=== PATIENT | male | born 1940 | race Caucasian/White ===

== ENCOUNTER → 2024-04-26 | Outpatient (CLI) | payer MEDICARE ==
[~2024-04-26] MED LIST: ASPI-COR81 M1; KEFLEX500 MG PO
[2024-04-26 10:46] LABS: BASO # 0.1 10*3/uL (0.0-0.1); BASO % 0.8 % (0.0-1.0); EOS # 0.3 10*3/uL (0.0-0.4); EOS % 3.3 % (1.0-4.0); HEMATOCRIT 52.2 % (42.0-52.0); LYMPH # 1.8 10*3/uL (1.3-4.4); LYMPH % 24.3 % (27.0-41.0); MEAN CELL VOLUME 88.8 fl (80.0-94.0); MEAN CORPUSCULAR HGB CONC 34.9 g/dl (33.0-37.0); MEAN PLATELET VOLUME 9.6 fl (9.6-12.3); MONO # 0.5 10*3/uL (0.1-1.0); MONO % 6.9 % (3.0-9.0); NEUT # 4.8 10*3/uL (2.3-7.9); NEUT % 64.2 % (47.0-73.0); PLATELET COUNT AUTOMATED 171 10*3/uL (130-400); RED BLOOD COUNT 5.88 10*6/uL (4.50-5.90); RED CELL DISTRI WIDTH 14.1 % (0-14.5); RETICULOCYTE % 1.72 % (0.50-2.50); WHITE BLOOD COUNT 7.5 10*3/uL (4.8-10.8)
[2024-04-26 10:49] LABS: BILIRUBIN Negative (Negative); BLOOD Negative (Negative); CLARITY Clear (Clear); COLOR Yellow (Yellow); GLUCOSE Negative (Negative); KETONE Negative (Negative); LEUKO ESTERASE Negative (Negative); NITRITE Negative (Negative); PH 5.5 (4.5-8.0); UROBILINOGEN 0.2 E.U./dl (0.0-1.0)
[2024-04-26 11:02] LABS: EPITHELIAL CELLS 0-2
[2024-04-26 11:12] LABS: ALKALINE PHOSPHATASE 49 U/L (46-116); BUN 19 mg/dl (9-23); CHLORIDE 107 mmol/L (98-107); CHOLESTEROL 135 mg/dL (<200); GAMMA GLUTAMYL TRANSPEPTIDASE 16 U/L (0-73); LDL CHOLESTEROL 68 mg/dL (9-159); POTASSIUM 4.3 mmol/L (3.4-5.1); SGPT/ALT 19 U/L (5-49); T3 UPTAKE 32.3 % (22.4-36.7); TOTAL PROTEIN 6.9 gm/dL (6.0-8.0); TRIGLYCERIDES 143 mg/dl (<150); URIC ACID 6.5 mg/dL (3.7-9.2)
[2024-04-26 11:24] LABS: VITAMIN D, 25-HYDROXY 92.1 ng/mL (30-100)
[2024-04-29 14:07] LABS: ANTI-DSDNA ANTIBODIES <1 IU/mL (0-9)
== END | disposition home or self-care (01) ==
LOC: LAB 10:16
PROVIDERS: ATTEND Family Medicine
DX: Z12.5 Encounter for screening for malignant neoplasm of prostate (principal); R06.02 Shortness of breath; R79.89 Other specified abnormal findings of blood chemistry; R53.83 Other fatigue; E78.5 Hyperlipidemia, unspecified; R74.8 Abnormal levels of other serum enzymes; E55.9 Vitamin D deficiency, unspecified

== ENCOUNTER → 2024-05-16 | Outpatient (CLI) | payer MEDICARE ==
[~2024-05-16] MED LIST changes: +GADOTERATE MEGLUMINE 7.5 MMOL/15 ML VIAL IV ONE
== END | disposition home or self-care (01) ==
LOC: US 01:02 → MRI 10:00
PROVIDERS: ATTEND Family Medicine
DX: I65.23 Occlusion and stenosis of bilateral carotid arteries (principal); R90.82 White matter disease, unspecified; R42 Dizziness and giddiness; R51.9 Headache, unspecified

== ENCOUNTER → 2025-06-27 | Outpatient (CLI) | payer MEDICARE ==
[~2025-06-27] MED LIST changes: -GADOTERATE MEGLUMINE 7.5 MMOL/15 ML VIAL IV ONE
[2025-06-27 11:29] LABS: BASO # 0.1 10*3/uL (0.0-0.1); BASO % 1.0 % (0.0-1.0); EOS # 0.3 10*3/uL (0.0-0.4); EOS % 3.3 % (1.0-4.0); MEAN CELL VOLUME 88.7 fl (80.0-94.0); MEAN CORPUSCULAR HGB 29.8 pg (27.0-31.0); MEAN PLATELET VOLUME 9.8 fl (9.6-12.3); MONO # 0.6 10*3/uL (0.1-1.0); MONO % 6.9 % (3.0-9.0); NEUT # 6.2 10*3/uL (2.3-7.9); NEUT % 69.0 % (47.0-73.0); NUCLEATED RED BLOOD CELL 0.0 % (0.0-0.0); NUCLEATED RED BLOOD CELL 0.0 10*3/uL (0.0-0.0); PLATELET COUNT AUTOMATED 178 10*3/uL (130-400); RED CELL DISTRI WIDTH 14.1 % (0-14.5); RETICULOCYTE % 1.33 % (0.50-2.50)
[2025-06-27 11:40] LABS: BILIRUBIN Negative (Negative); BLOOD Negative (Negative); CLARITY Clear (Clear); COLOR Yellow (Yellow); KETONE Trace (Negative); LEUKO ESTERASE Negative (Negative); NITRITE Negative (Negative); PH 6.0 (4.5-8.0); SPECIFIC GRAVITY 1.020 (1.001-1.030); UROBILINOGEN 1.0 E.U./dl (0.0-1.0)
[2025-06-27 11:53] LABS: BUN 18 mg/dl (9-23); GAMMA GLUTAMYL TRANSFERASE 14 U/L (0-73); LDL CHOLESTEROL 57 mg/dL (9-159); SGPT/ALT 24 U/L (5-49); T3 UPTAKE 34.1 % (22.4-36.7); THYROXINE (T4) TOTAL 7.0 ug/dl (4.5-10.9)
[2025-06-27 12:01] LABS: BACTERIA 1+
[2025-06-27 12:02] LABS: HYALINE CAST 0-2; MUCOUS TRACE
[2025-06-27 12:07] LABS: VITAMIN D, 25-HYDROXY 118.6 ng/mL (30-100)
== END | disposition home or self-care (01) ==
LOC: LAB 10:51
PROVIDERS: ATTEND Family Medicine
DX: R06.02 Shortness of breath (principal); E78.5 Hyperlipidemia, unspecified; E55.9 Vitamin D deficiency, unspecified; R53.83 Other fatigue; R79.89 Other specified abnormal findings of blood chemistry; Z12.5 Encounter for screening for malignant neoplasm of prostate

== ENCOUNTER → 2025-07-01 | Outpatient (CLI) | payer MEDICARE | END | disposition home or self-care (01) | LOC: LAB 10:08 | PROVIDERS: ATTEND Family Medicine | DX: E78.5 Hyperlipidemia, unspecified (principal); E55.9 Vitamin D deficiency, unspecified; R53.83 Other fatigue; R79.89 Other specified abnormal findings of blood chemistry ==